=== PATIENT | male | born 1940 | race Caucasian/White ===

== ENCOUNTER → 2019-09-24 | Outpatient (CLI) | payer MEDICARE ==
[~2019-09-24] MED LIST: REGADENOSON 0.4 MG/5 ML SYR IV ONE
--- NOTE | 2019-09-24 17:30 | Myoview Stress Test ---
DATE OF STUDY: 09/24/2019 07:39:00 Stress Test - Treadmill ONLY PROCEDURE: Lexiscan nuclear stress test. INDICATION: Chest pain. FINDINGS: The patient was stressed using 1 minute intravenous infusion of Lexiscan. Rest and stress Myoview imaging was obtained. Resting heart rate 89 beats per minute, blood pressure 130/64. Electrocardiogram shows sinus rhythm without any abnormalities. Following Lexiscan infusion, no EKG changes or chest pain. Both nuclear imaging and resting stress is normal, and normal contractility to the left ventricle. CONCLUSIONS: 1. Normal Lexiscan nuclear stress test without evidence of ischemia or infarction. 2. Left ventricular ejection fraction is 64%. MD MARIUM Dang/YAZMIN /[id number]
== END ==
LOC: NM 07:25
PROVIDERS: ATTEND Internal Medicine Cardiovascular Disease
DX: R07.9 Chest pain, unspecified (principal)
CPT/HCPCS: 78452; 93017; A9502; J2785